=== PATIENT | male | born 1980 | race Caucasian/White ===

== ENCOUNTER 2017-06-10 23:25 | Emergency (ER) | payer BC, OTHER ==
[~2017-06-10] VITALS: Ht 182.9 cm; Wt 86.2 kg
--- NOTE | 2017-06-11 00:24 | ED Chest Pain ---
General Chief Complaint: General Problems/Pain Stated Complaint: CP,SOB Nursing Triage Note: PT TO ED 6 W/ C/O LT SIDE CP, SOB ONSET X2 DAYS. REPORTS COUGH X1WK. STATES "I'M COUGHING UP BLACK SHIT." PT STATES HE WAS SEEN AT [facility] LAST NOC, THE "[place] [employer] POPPED HIS BACK, DID BLOOD WORK ET CHEST XRAY ET TOLD HE HAS PLEURISY ET BRONCHITIS." PT ALSO REPORTS HE HAS AN "EXTREMELY SENSATIVE LT NIPPLE." NO OTHER C/O VOICED Nursing Sepsis Screen: No Definite Risk Source: patient Allergies and Home Medications Allergies Coded Allergies: Penicillins (Verified Allergy, Unknown, 06/10/17) amoxicillin (Verified Allergy, Unknown, 06/10/17) clavulanic acid (Verified Allergy, Unknown, 06/10/17) Past Jghdagj-Xpplwh-Vbefqb Hx Patient Social History Alcohol Use: Denies Use Recreational Drug Use: No Smoking Status: Current Everyday Smoker Type Used: Cigarettes 2nd Hand Smoke Exposure: Yes Recent Foreign Travel: No Contact w/Someone Who Travel: No Recent Infectious Disease Expo: No Recent Hopitalizations: No Physical Abuse: No Sexual Abuse: No Mistreated: No Fear: No Surgeries History of Surgeries: Yes (SHOULDER REPAIR, SCAFFOID FX W/ BONE GRAFT LT ) Surgeries: Appendectomy Cardiovascular History of Cardiac Disorders: Yes Cardiac Disorders: Hypertension Neurological History of Neurological Disord: No Genitourinary History of Genitourinary Disor: No Gastrointestinal History of Gastrointestinal Di: No Musculoskeletal History of Musculoskeletal Dis: Yes Musculoskeletal Disorders: Fractures HEENT History of HEENT Disorders: No Cancer History of Cancer: No Psychosocial History of Psychiatric Problem: No Suicide Risk Score: 0 Physical Exam Vital Signs Vital Sign - Last 12Hours 06/10/17 23:32 Temp 98.7 Pulse 98 Resp 20 B/P (MAP) 139/87 (104) Pulse Ox 96 O2 Delivery Room Air Capillary Refill : Less Than 3 Seconds Focused Exam Evaluation Lactate Level Laboratory Tests 06/11/17 00:18: Lactic Acid Level 1.53 Lactic Acid Level Laboratory Tests Test 06/11/17 00:18 Lactic Acid Level 1.53 MMOL/L (0.50-2.00) Progress/Results/Core Measures Results/Orders Lab Results Laboratory Tests Test 06/11/17 00:18 Range/Units White Blood Count 10.7 4.3-11.0 10^3/uL Red Blood Count 5.03 4.35-5.85 10^6/uL Hemoglobin 14.4 13.3-17.7 G/DL Hematocrit 44 40-54 % Mean Corpuscular Volume 87 80-99 FL Mean Corpuscular Hemoglobin 29 25-34 PG Mean Corpuscular Hemoglobin Concent 33 32-36 G/DL Red Cell Distribution Width 13.8 10.0-14.5 % Platelet Count 211 130-400 10^3/uL Mean Platelet Volume 10.7 H 7.4-10.4 FL Neutrophils (%) (Auto) 82 H 42-75 % Lymphocytes (%) (Auto) 12 12-44 % Monocytes (%) (Auto) 5 0-12 % Eosinophils (%) (Auto) 1 0-10 % Basophils (%) (Auto) 0 0-10 % Neutrophils # (Auto) 8.8 H 1.8-7.8 X 10^3 Lymphocytes # (Auto) 1.2 1.0-4.0 X 10^3 Monocytes # (Auto) 0.6 0.0-1.0 X 10^3 Eosinophils # (Auto) 0.1 0.0-0.3 10^3/uL Basophils # (Auto) 0.0 0.0-0.1 10^3/uL Prothrombin Time 12.7 12.2-14.7 SEC INR Comment 0.9 0.8-1.4 Activated Partial Thromboplast Time 31 24-35 SEC Sodium Level 141 135-145 MMOL/L Potassium Level 4.1 3.6-5.0 MMOL/L Chloride Level 109 H 98-107 MMOL/L Carbon Dioxide Level 24 21-32 MMOL/L Anion Gap 8 5-14 MMOL/L Blood Urea Nitrogen 6 L 7-18 MG/DL Creatinine 0.80 0.60-1.30 MG/DL Estimat Glomerular Filtration Rate > 60 BUN/Creatinine Ratio 8 Glucose Level 112 H 70-105 MG/DL Lactic Acid Level 1.53 0.50-2.00 MMOL/L Calcium Level 9.7 8.5-10.1 MG/DL Magnesium Level 2.0 1.8-2.4 MG/DL Total Bilirubin 0.2 0.1-1.0 MG/DL Aspartate Amino Transf (AST/SGOT) 18 5-34 U/L Alanine Aminotransferase (ALT/SGPT) 21 0-55 U/L Alkaline Phosphatase 72 40-136 U/L Total Creatine Kinase 78 30-200 U/L Creatine Kinase MB 0.8 <6.6 NG/ML Troponin I < 0.30 <0.30 NG/ML B-Type Natriuretic Peptide < 10.0 <100.0 PG/ML Total Protein 7.0 6.4-8.2 GM/DL Albumin 4.3 3.2-4.5 GM/DL TSH [place] Testing 0.30 L 0.35-4.94 UIU/ML My Orders Orders - ROSA M MARSH DO Saline Lock/Iv-Start (06/10/17 23:44) Ekg Tracing (06/10/17 23:44) Monitor-Rhythm Ecg Trace Only (06/10/17 23:44) BNP (06/10/17 23:44) Cbc With Automated Diff (06/10/17 23:44) Comprehensive Metabolic Panel (06/10/17 23:44) Creatine Kinase (06/10/17 23:44) Creatine Kinase Mb (06/10/17 23:44) Lactic Acid Analyzer (06/10/17 23:44) Magnesium (06/10/17 23:44) Protime With Inr (06/10/17 23:44) Partial Thromboplastin Time (06/10/17 23:44) Thyroid Analyzer (06/10/17 23:44) Troponin I (06/10/17 23:44) Blood Culture (06/10/17 23:44) Influenza A And B Antigens (06/10/17 23:44) Ct Angio Chest W (06/11/17 00:01) Chest Pa/Lat (2 View) (06/11/17 00:01) Iohexol Injection (Omnipaque 350 Mg/Ml 1 (06/11/17 00:30) Ns (Ivpb) (Sodium Chloride 0.9% Ivpb Bag (06/11/17 00:30) Free T4 (Free Thyroxine) (06/11/17 00:18) Medications Given in ED Current Medications Medications Dose Ordered Sig/Diallo Route Start Time Stop Time Status Last Admin Dose Admin Iohexol 125 ml ONCE ONCE IV 06/11/17 00:30 06/11/17 00:31 UNV 06/11/17 01:07 125 ML Sodium Chloride 100 ml ONCE ONCE IV 06/11/17 00:30 06/11/17 00:31 UNV 06/11/17 01:08 80 ML Vital Signs/I&O Vital Sign - Last 12Hours 06/10/17 23:32 Temp 98.7 Pulse 98 Resp 20 B/P (MAP) 139/87 (104) Pulse Ox 96 O2 Delivery Room Air Blood Pressure Mean: 104 Departure Impression Impression: Primary Impression: Bronchitis Additional Impressions: Left-sided chest wall pain Nodule of left lung Abnormal thyroid function test Disposition: HOME, SELF-CARE Condition: Stable Departure-Patient Inst. Referrals: NO,LOCAL PHYSICIAN (PCP/Family) Primary Care Physician Patient Instructions: Acute Bronchitis, Adult (DC), Costochondritis (DC), Pleuritic Chest Pain (DC), Single Pulmonary Nodule, Thyroid Stimulating Hormone Test Add. Discharge Instructions: LOTS OF CLEAR LIQUIDS ALTERNATE ICE AND HEAT TO CHEST AT 20 MINUTE INTERVALS TYLENOL NEEDED FOR PAIN OR FEVER CONTINUE CLARITHROMYCIN AND PREDNISONE PRESCRIBED MUCINEX DM FOR COUGH FOLLOW UP WITH OF JOB NEXT WEEK FOR FURTHER CARE--LIST PROVIDED All discharge instructions reviewed with patient and/or family. Voiced understanding. 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
[2017-06-11 00:30] LABS: BASOPHILS % (AUTO) 0 % (0-10); EOSINOPHILS # (AUTO) 0.1 10^3/uL (0.0-0.3); EOSINOPHILS % (AUTO) 1 % (0-10); LYMPHOCYTES # (AUTO) 1.2 X 10^3 (1.0-4.0); LYMPHOCYTES % (AUTO) 12 % (12-44); MEAN CORPUSCULAR HEMOGLOBIN 29 PG (25-34); MEAN CORPUSCULAR HGB CONC 33 G/DL (32-36); MEAN CORPUSCULAR VOLUME 87 FL (80-99); MEAN PLATELET VOLUME 10.7 FL (7.4-10.4); MONOCYTES # (AUTO) 0.6 X 10^3 (0.0-1.0); MONOCYTES % (AUTO) 5 % (0-12); NEUTROPHILS # (AUTO) 8.8 X 10^3 (1.8-7.8); NEUTROPHILS % (AUTO) 82 % (42-75); PLATELET COUNT 211 10^3/uL (130-400); RED BLOOD COUNT 5.03 10^6/uL (4.35-5.85); RED CELL DISTRIBUTION WIDTH 13.8 % (10.0-14.5); WHITE BLOOD COUNT 10.7 10^3/uL (4.3-11.0)
[2017-06-11] MEDS ORDERED: NS 100 ML (IVPB) BAG IV ONE (00:30)
[2017-06-11] MEDS ORDERED: IOHEXOL 350 MG/ML 150 ML (OMNIPAQUE 350) VIAL IV ONE (00:30)
[2017-06-11 00:43] LABS: INR 0.9 (0.8-1.4); PROTHROMBIN TIME PATIENT 12.7 SEC (12.2-14.7)
[2017-06-11 00:54] LABS: ALANINE AMINOTRANSFERASE 21 U/L (0-55); ALBUMIN 4.3 GM/DL (3.2-4.5); ANION GAP 8 MMOL/L (5-14); ASPARTATE AMINO TRANSFERASE 18 U/L (5-34); BILIRUBIN,TOTAL 0.2 MG/DL (0.1-1.0); BLOOD UREA NITROGEN 6 MG/DL (7-18); BUN/CREATININE RATIO 8; CALCIUM 9.7 MG/DL (8.5-10.1); CARBON DIOXIDE 24 MMOL/L (21-32); CHLORIDE 109 MMOL/L (98-107); CREATINE KINASE 78 U/L (30-200); GFR ESTIMATED > 60; GLUCOSE 112 MG/DL (70-105); POTASSIUM 4.1 MMOL/L (3.6-5.0); SODIUM 141 MMOL/L (135-145)
[2017-06-11 01:14] LABS: TROPONIN I < 0.30 NG/ML (<0.30)
[2017-06-11 02:00] VITALS: BP 133/95
--- NOTE | 2017-06-11 06:50 | Diagnostic Imaging Report ---
PROCEDURE: CT angiography of the chest with contrast. TECHNIQUE: Multiple contiguous axial images were obtained through the chest after uneventful bolus administration of intravenous contrast. Reconstructed CTA MIP acquisitions were also performed. DATE: 06/11/2017. COMPARISON: None. INDICATION: 37-year-old male, chest pain for 2 days. FINDINGS: There is a left lower lobe pulmonary nodule adjacent to the fissure measuring 5 mm in size on axial image 83. There is no additional identified pulmonary nodule. There are very mild right apical changes of paraseptal emphysema. There is minimal dependent atelectasis in the right lower lobe. There is no additional focal airspace consolidation. There is no pneumothorax. There is no pleural effusion. The more central airways are patent. There is no identified pulmonary embolus. The main pulmonary artery is normal in caliber. The heart is not enlarged. There is no pericardial effusion. There is incidental note of direct origin of the left vertebral artery off the aortic arch. There is no identified abnormally enlarged mediastinal, hilar, or axillary lymph node which meets CT size criteria for adenopathy. The gallbladder is contracted. The additional limited evaluation of the visualized portions of the upper abdomen is unremarkable. There is no identified acute bony abnormality. IMPRESSION: CT CHEST. 1. No evidence of pulmonary embolus or other acute cardiopulmonary abnormality. 2. A 5 mm noncalcified left lower lobe pulmonary nodule which is likely pleurally based. Recommend followup CT chest in 6 months to evaluate for stability. Dictated by: Dictated on workstation # [id number]
--- NOTE | 2017-06-11 07:07 | Diagnostic Imaging Report ---
INDICATION: Chest pain x2 days. FINDINGS: Examination of the chest in the PA and lateral projections fails to reveal evidence of active parenchymal pathology or pleural effusion. The cardiac silhouette is normal. IMPRESSION: Negative chest. Dictated by: Dictated on workstation # [id number]
== END 2017-06-11 02:00 | disposition home or self-care (01) ==
LOC: ER 23:29
DX: J40 Bronchitis, not specified as acute or chronic (principal); R07.89 Other chest pain; R91.1 Solitary pulmonary nodule; R94.6 Abnormal results of thyroid function studies; I10 Essential (primary) hypertension; F17.210 Nicotine dependence, cigarettes, uncomplicated; Z90.49 Acquired absence of other specified parts of digestive tract
CPT/HCPCS: 36415; 71020; 71275; 80053; 82550; 82553; 83605; 83735; 83880; 84439; 84443; 84484; 85025; 85610; 85730; 87040

== ENCOUNTER 2018-05-17 20:36 | Emergency (ER) | payer BC ==
[~2018-05-17] VITALS: Ht 188 cm; Wt 90.7 kg
--- NOTE | 2018-05-17 21:39 | ED Lower Extremity ---
General Chief Complaint: Lower Extremity Stated Complaint: R KNEE POP/PAIN, LEG TRYING TO LOCK UP,PAIN 9/10, Nursing Triage Note: PATIENT STATES THAT HE STEPPED UP ON THE BED OF A TRUCK AND FELT AND HEARD A POP IN HIS KNEE AND THAT IT FELT LIKE "SOMEONE CRACKED ME ACROSS THE KNEE". HE WENT TO [facility] IN [place] AND HE STATES THAT THEY DID AN X-RAY AND THAT HE RECEIVED INSTRUCTIONS TO SEE PRIMARY CARE PHYSICIAN FOR MRI AND TO TAKE IBUPR. THEY ALSO GAVE HIM A BRACE THAT DOES NOT FIT. HE HAS ICED IT AND KEPT IT ELEVATED. NOW HE IS UNABLE TO STRAIGHTEN THE LEG AND THE PAIN HAS INCREASED. Nursing Sepsis Screen: No Definite Risk Source: patient Exam Limitations: no limitations History of Present Illness Date Seen by Provider: May 17, 2018 Time Seen by Provider: 21:39 Initial Comments Patient is a 38-year-old male who presents to the emergency room with complaints of right knee pain. He reports that he was seen at [facility] emergency room: And states that they did an x-ray and put him in a knee immobilizer and crutches and was told to follow up with his primary care provider. He does not have his knee immobilizer on, on arrival to the emergency room but he is using his crutches. He reports that he injured the while stepping up onto his truck bed and felt a pop in his knee earlier today. Onset: this morning Pain/Injury Location: right knee Method of Injury: unknown Modifying Factors: Worse With Movement Allergies and Home Medications Allergies Coded Allergies: Penicillins (Verified Allergy, Unknown, 06/10/17) amoxicillin (Verified Allergy, Unknown, 06/10/17) clavulanic acid (Verified Allergy, Unknown, 06/10/17) Home Medications Hydrocodone Bit/Acetaminophen 1 Tab Tab, 1-2 EACH PO Q6H PRN for PAIN-MODERATE Prescribed by: ABBY LANDERS on 05/17/18 [id number] Patient Home Medication List Home Medication List Reviewed: Yes Review of Systems Constitutional: no symptoms reported, see HPI Musculoskeletal: see HPI, joint pain (right knee pain) All Other Systems Reviewed Negative Unless Noted: Yes Past Yjmgexb-Usccci-Thkzhk Hx Past Med/Social Hx: Reviewed Nursing Past Med/Soc Hx Patient Social History Alcohol Use: Denies Use Recreational Drug Use: No Smoking Status: Current Everyday Smoker Type Used: Cigarettes 2nd Hand Smoke Exposure: Yes Recent Foreign Travel: No Contact w/Someone Who Travel: No Recent Infectious Disease Expo: No Recent Hopitalizations: No Immunizations Up To Date Tetanus Booster (TDap): Less than 5yrs Past Medical History Surgeries: Yes (LEFT SHOULDER REPAIR 11/2016; LEFT SCAPHOID FX W/ BONE GRAFT) Appendectomy, Orthopedic Respiratory: Yes ("VALLEY FEVER", ABNORMAL CT LEFT LOWER LOBE) Asthma, Pneumonia Cardiac: Yes Hypertension Neurological: No Genitourinary: No Gastrointestinal: No Musculoskeletal: Yes ([place] SPOTTED FEVER) Fractures Endocrine: No HEENT: No Cancer: No Psychosocial: No Integumentary: No Blood Disorders: No Family Medical History Reviewed Nursing Family Hx Physical Exam Vital Signs Vital Signs - First Documented 05/17/18 21:04 Temp 98.5 Pulse 91 Resp 22 B/P (MAP) 141/80 (100) Pulse Ox 98 O2 Delivery Room Air Capillary Refill : Less Than 3 Seconds Height, Weight, BMI Height: 6'2.00" Weight: 200lbs. oz. 90.756437ld; BMI Method:Stated General Appearance: WD/WN, no apparent distress Cardiovascular: normal peripheral pulses, regular rate, rhythm, no edema, no gallop, no JVD, no murmur Respiratory: chest non-tender, lungs clear, normal breath sounds, no respiratory distress, no accessory muscle use Knees: left knee non-tender; bilateral knee normal inspection; left knee normal range of motion, left knee no evidence of injury; right knee pain, right knee soft tissue tenderness Neurologic/Tendon: normal sensation, normal motor functions, normal tendon functions Neurologic/Psychiatric: alert, normal mood/affect, oriented x 3 Skin: normal color, warm/dry Progress/Results/Core Measures Results/Orders My Orders Orders - ABBY LANDERS Knee, Right, 3 Views (05/17/18 21:38) Hydrocodone/Apap 7.5/325 Tab (Lortab 7. (05/17/18 21:45) Rx-Hydrocodone/Apap 5-325 Mg (Rx-Vicodin (05/17/18 23:04) Medications Given in ED Vital Signs/I&O 05/17/18 05/17/18 21:04 23:14 Temp 98.5 97.0 Pulse 91 87 Resp 22 20 B/P (MAP) 141/80 (100) 135/81 (99) Pulse Ox 98 97 O2 Delivery Room Air Room Air Blood Pressure Mean: 100 Departure Impression Primary Impression: Sprain of knee Disposition: 01 HOME, SELF-CARE Condition: Stable/Unchanged Departure-Patient Inst. Decision time for Depature: 22:47 Referrals: NO,LOCAL PHYSICIAN (PCP) Primary Care Physician YOAN RING MD Patient Instructions: Knee Sprain (DC) Add. Discharge Instructions: Wear the immobilizer at all times. Take medications as directed. Use crutches to ambulate. Follow-up with Dr. Ring's office within 1 week. Call first thing tomorrow morning for an appointment time. Return back to the emergency room for any worsening symptoms or concerns as needed. All discharge instructions reviewed with patient and/or family. Voiced understanding. Scripts Hydrocodone Bit/Acetaminophen (Hydrocodone/Acetaminophen 5/325mg Tablet) 1 Tab Tab 1-2 EACH PO Q6H PRN for PAIN-MODERATE MDD 10, #20 TAB Prov: ABBY LANDERS 05/17/18 ABBY LANDERS May 17, 2018 21:39
[2018-05-17] MEDS ORDERED: HYDROcodone/APAP 7.5 MG/325 MG (LORTAB, LORCET PLUS) TABLET PO ONE (21:45)
[2018-05-17] MEDS ORDERED: ACHD5005 PO (22:49)
[2018-05-17] MEDS ORDERED: RX-HYDROCODONE/APAP 5/325 MG #4 TAB PK PO ONE (23:04)
[2018-05-17 23:14] VITALS: BP 135/81
--- NOTE | 2018-05-18 07:08 | Diagnostic Imaging Report ---
INDICATION: Right knee injury. FINDINGS: 3 views of the right knee show no fracture, dislocation or other acute abnormalities. IMPRESSION: Negative right knee. Dictated by: Dictated on workstation # [id number]
== END 2018-05-17 23:16 | disposition home or self-care (01) ==
LOC: EDUNIT# 20:36 → ER 20:37
DX: S83.91XA Sprain of unspecified site of right knee, initial encounter (principal); I10 Essential (primary) hypertension; J45.909 Unspecified asthma, uncomplicated; F17.210 Nicotine dependence, cigarettes, uncomplicated; Z87.01 Personal history of pneumonia (recurrent); Z88.0 Allergy status to penicillin; Z88.8 Allergy status to other drugs, medicaments and biological substances; X50.1XXA Overexertion from prolonged static or awkward postures, initial encounter
CPT/HCPCS: 73562